=== PATIENT | female | born 1995 | race Hispanic/Latino ===

== ENCOUNTER 2018-02-09 19:15 | Inpatient (IN) | payer OTHER, SELFPAY ==
[2018-02-09] MEDS: 0.9% Saline Lock 10 ML Syringe IV (19:55)
[2018-02-09 20:25] LABS: Hematocrit 35.8 % (37-47); Hemoglobin 11.6 g/dl (12.0-15.0); Mean Corp Hgb Conc 32.4 g/gl (32-36); Mean Corpuscular Hgb 27.8 pg (27.0-32.0); Mean Corpuscular Volume 85.6 fL (81-99); Mean Platelet Vol. 9.2 fl (6.2-12.0); Platelet Count 296 K/mm3 (150-450); RBC Distribution Width CV 13.9 % (11.6-14.6); RBC Distribution Width SD 43.2 fl (35.1-43.9); Red Blood Count 4.18 M/mm3 (4.2-5.4); White Blood Count 7.2 K/mm3 (4.4-11.0)
[2018-02-09 20:26] LABS: Scan Indicated on CBC? Y/N NO
[2018-02-09] MEDS: 0.9% Normal Saline 100 ML IV.SOLN. INTRA-UTER (20:46)
[2018-02-09 20:54] VITALS: BMI 33.5
--- NOTE | 2018-02-09 21:05 | PCM.HP.OB ---
- Problem List (1) Post-dates Status: Acute (2) Insufficient antepartum care Status: Acute (3) History of depression Status: Acute (4) Support system deficit Status: Acute (5) Unwanted Status: Acute (6) Alcohol abuse affecting Status: Acute History Date of Admission: 02/09/18 Final KAYY: 02/02/18 Final KAYY Source: US <20 weeks Gestational age: 41 Weeks and 0 Days History of this : This is a 22 year-old, G [3], P [P0020], at 41 weeks gestational age presents for postdates IOL. Some irregular contractions today but nothing frequent or signs of labor. Denies any vaginal bleeding or leakage of fluid. Family supportive and at bedside. History of alcohol abuse during -no alcohol use since September. History of Depression Allergies No Known Allergies Allergy (Verified 02/09/18 20:53) Home Medications: Home Medications Folic Acid 1 mg PO DAILY 02/09/18 Vits [Prenatabs FA ] 1 tablet PO DAILY 02/09/18 Smoking Status: Never smoker Alcohol: Sober - Heavy alcohol use during , stopped in September after approx 23 weeks gestation Number of Fetus(es): 1 Heart Tracin, moderate variability, accels, no decels, Category 1 TOCO: Irregular contractions, mild Cervix: 1cm/60%/-3 IBOW. Tatum bulb placed without difficulty. Patient tolerated procedure well. TOCO Analysis: Irregular History Past Pregnancies: Past Pregnancies Delivery Date Name GA/Weeks Outcome Route Weight Gender Labor Length Anesthesia Delivery Location Provider FOB Labs: Rubella Immune HIV negative HBsAG negative RPR negative GBS negative GC/CT negative A positive, antibody screen negative Expected Delivery Method: Spontaneous Vaginal Review of Systems Constitutional: Denies: Chills, Fever, Weight Change HEENT: Denies: Head Aches, Sinus Congestion, Sinus Drainage Cardiovascular: Denies: Chest Pain, Palpitations Respiratory: Denies: Cough, Shortness of breath at rest, Sputum production Gastrointestinal: Denies: Abdominal Pain, Nausea, Vomiting Genitourinary: Denies: Dysuria Psychiatric: Denies: Anxiety, Depression, Homicidal Ideations, Suicidal Ideations Physical Exam General: Alert, Oriented x3, No apparent distress HEENT: Atraumatic, Normocephalic Cardiovascular: Regular rate, Regular Rhythm, No murmurs Lungs: Clear to auscultation, No rhonchi, No wheeze Abdomen: Soft, Gravid Extremities:: No edema Neurological: Deep Tendon Reflexes 2+/4 and Symmetrical. Negative for: Clonus PLATFORM SUPERVISOR: Normal external genitalia Estimated gestational size: Appropriate for gestational size Presentation: Cephalic Cervix Dilation (cm): 1 Station: -3 Effacement (%): 60 Assessment/Plan All Active Problems Post-dates (Acute) Insufficient antepartum care (Acute) History of depression (Acute) Support system deficit (Acute) Unwanted (Acute) Alcohol abuse affecting (Acute) This is a 22 year-old, G [3], P [0020], at weeks gestational age. A:Postdates Induction of Labor Category 1 FHT P: 1) Admit to L&D. IV and labs. Routine L&D care. 2) Reviewed cervical ripening and options. Discussed tatum catheter with PO cytotec R/B/A, agrees to plan. Plan Pitocin after tatum cateter falls out and appropriate time after cytotec dosing. 3) notified of admission and patient status. Collaborative physician at this time. Candis Avelar, KAILASH, CNM
--- NOTE | 2018-02-09 21:08 | HP.PCM_ITS ---
- Problem List (1) Post-dates Status: Acute (2) Insufficient antepartum care Status: Acute (3) History of depression Status: Acute (4) Support system deficit Status: Acute (5) Unwanted Status: Acute (6) Alcohol abuse affecting Status: Acute History Date of Admission: 02/09/18 Final KAYY: 02/02/18 Final KAYY Source: US <20 weeks Gestational age: 41 Weeks and 0 Days History of this : This is a 22 year-old, G [3], P [P0020], at 41 weeks gestational age presents for postdates IOL. Some irregular contractions today but nothing frequent or signs of labor. Denies any vaginal bleeding or leakage of fluid. Family supportive and at bedside. History of alcohol abuse during -no alcohol use since September. History of Depression Allergies No Known Allergies Allergy (Verified 02/09/18 20:53) Home Medications: Home Medications Folic Acid 1 mg PO DAILY 02/09/18 Vits [Prenatabs FA ] 1 tablet PO DAILY 02/09/18 Smoking Status: Never smoker Alcohol: Sober - Heavy alcohol use during , stopped in September after ap prox 23 weeks gestation Number of Fetus(es): 1 Heart Tracin, moderate variability, accels, no decels, Category 1 TOCO: Irregular contractions, mild Cervix: 1cm/60%/-3 IBOW. Tatum bulb placed without difficulty. Patient tolerated procedure well. TOCO Analysis: Irregular History Past Pregnancies: Past Pregnancies Delivery Date Name GA/Weeks Outcome Route Weight Gender Labor Length Anesthesia Delivery Location Provider FOB Labs: Rubella Immune HIV negative HBsAG negative RPR negative GBS negative GC/CT negative A positive, antibody screen negative Expected Delivery Method: Spontaneous Vaginal Review of Systems Constitutional: Denies: Chills, Fever, Weight Change HEENT: Denies: Head Aches, Sinus Congestion, Sinus Drainage Cardiovascular: Denies: Chest Pain, Palpitations Respiratory: Denies: Cough, Shortness of breath at rest, Sputum production Gastrointestinal: Denies: Abdominal Pain, Nausea, Vomiting Genitourinary: Denies: Dysuria Psychiatric: Denies: Anxiety, Depression, Homicidal Ideations, Suicidal Ideations Physical Exam General: Alert, Oriented x3, No apparent distress HEENT: Atraumatic, Normocephalic Cardiovascular: Regular rate, Regular Rhythm, No murmurs Lungs: Clear to auscultation, No rhonchi, No wheeze Abdomen: Soft, Gravid Extremities:: No edema Neurological: Deep Tendon Reflexes 2+/4 and Symmetrical. Negative for: Clonus COMMUNICATIONS BILLING ANALYST: Normal external genitalia Estimated gestational size: Appropriate for gestational size Presentation: Cephalic Cervix Dilation (cm): 1 Station: -3 Effacement (%): 60 Assessment/Plan All Active Problems Post-dates (Acute) Insufficient antepartum care (Acute) History of depression (Acute) Support system deficit (Acute) Unwanted (Acute) Alcohol abuse affecting (Acute) This is a 22 year-old, G [3], P [0020], at weeks gestational age. A:Postdates Induction of Labor Category 1 FHT P: 1) Admit to L&D. IV and labs. Routine L&D care. 2) Reviewed cervical ripening and options. Discussed tatum catheter with PO cytotec R/B/A, agrees to plan. Plan Pitocin after tatum cateter falls out and appropriate time after cytotec dosing. 3) notified of admission and patient status. Collaborative physician at this time. Candis Avelar APRN, CNM
[2018-02-09] MEDS: miSOPROStol 25 MCG TABLET PO (21:25)
[2018-02-09 23:45] LABS: AST(SGOT) 14 U/L (15-37); Alanine Aminotransfer ALT/SGPT 11 U/L (13-56); Albumin, Serum 2.5 g/dL (3.2-5.0); Alkaline Phosphatase 268 U/L (45-117); Bilirubin, Direct 0.08 mg/dL (0.00-0.30); Globulin 3.7 g/dL (2.2-4.2); Protein, Total 6.2 g/dL (6.4-8.2)
[2018-02-10] MEDS: 0.9% Saline Lock 10 ML Syringe IV ×3 (03:49→21:34)
[2018-02-10] MEDS: Lactated Ringers 1,000 ML 50 ML IV ×2 (03:52→04:55)
[2018-02-10] MEDS: Oxytocin 30 units/NS 500 ml 30 UNITS/500 ML IV.SOLN IV (03:55)
[2018-02-10] MEDS: fentaNYL-bupivacaine (epidural) 100 ML BAG EPIDURAL ×2 (05:22→10:02)
--- NOTE | 2018-02-10 08:23 | PCM.PN.OB ---
Patient Problems: Active and Suspected Problems Post-dates (Acute) Insufficient antepartum care (Acute) History of depression (Acute) Support system deficit (Acute) Unwanted (Acute) Alcohol abuse affecting (Acute) Subjective: Report received from Viral LEONG. Patient laying in bed currently and is comfortable after epidural placement. Patient currently on 10 milliunits pitocin. Plan for repeat SVE to be done at this time with plans for AROM if minimal or no cervical change noted. Objective: FHT baseline 130, moderate variability, + accels, no decels noted Ctx q 2-6 minutes, moderately strong to palpation SVE = 4-5/60/-2, cervix midposition AROM for moderate amount brown particulate fluid - Physical Exam General: Alert, Oriented x3, Cooperative HEENT: Atraumatic, Normocephalic Neck: Supple, Negative Carotid Bruits Lungs: Normal air movement Cardiovascular: Regular rate, No murmurs Abdomen: Soft, Non Tender, Non-Distended Extremities: No edema, Capillary Refill Less than 3 Seconds Skin: No rashes, No breakdown Musculoskeletal: No Tenderness to Palpation of Joints or Extremities Neurological: Cranial nerves II-XII grossly intact, Deep Tendon Reflexes 2+/4 and Symmetrical Psych/Mental Status: Normal Affect, Appropriate Weight: 227 lb 1.218 oz Body Mass Index (BMI) 33.5 Intake and Output for Last 24 Hours 02/09/18 02/09/18 02/10/18 00:59 23:59 23:59 Intake Total 2662 / 2662 Balance 2662 / 2662 Laboratory Tests Past 24 Hrs 02/09/18 02/09/18 02/09/18 19:55 19:55 23:00 WBC 7.2 RBC 4.18 L Hgb 11.6 L Hct 35.8 L MCV 85.6 MCH 27.8 MCHC 32.4 RDW 13.9 RDW Differential 43.2 Plt Count 296 MPV 9.2 Total Bilirubin 0.40 Direct Bilirubin 0.08 AST 14 L ALT 11 L Alkaline Phosphatase 268 H Total Protein 6.2 L Albumin 2.5 L Globulin 3.7 Blood Type A POSITIVE Antibody Screen NEGATIVE Medical Necessity - Tobacco Use Smoking Status: Never smoker Assessment/Plan All Active Problems Post-dates (Acute) Insufficient antepartum care (Acute) History of depression (Acute) Support system deficit (Acute) Unwanted (Acute) Alcohol abuse affecting (Acute) 22 y/o @ 41 weeks, Postdates IOL, AROM for Labor Augmentation, Category I FHT 1) Continue pitocin titration at this time until adequate ctx 2) Consider placement of internal monitoring and IUPC with next SVE 3) Collaborating physician Dr. Farmer updated on patient status and plan of care Letitia LEONG
--- NOTE | 2018-02-10 12:10 | PCM.PN.OB ---
Patient Problems: Active and Suspected Problems Post-dates (Acute) Insufficient antepartum care (Acute) History of depression (Acute) Support system deficit (Acute) Unwanted (Acute) Alcohol abuse affecting (Acute) Subjective: Provider called to room to evaluate patient. Patient reports increase in pelvic pressure sensations and anesthesia has been called to evaluate. Patient requests a repeat SVE at this time. Objective: FHT baseline 140 baseline, mild to moderate variability, + accels, no decels noted Ctx q 2-3 minutes, palpate strong. Pitocin off at this time. IUPC in place - MVU = 150-180 SVE = 8/80/-1, baby OP by palpation of sutures - Physical Exam General: Alert, Oriented x3, Cooperative, - - grimaces and breathing during ctx Lungs: Normal air movement Cardiovascular: Regular rate Abdomen: Soft, Non Tender, Appropriate for Gestational Age, - - Baby vtx and OP by Sam's Skin: No rashes, No breakdown Neurological: Cranial nerves II-XII grossly intact Psych/Mental Status: Normal Affect, Appropriate, Alert and oriented to time, place, person, mood and affect Weight: 227 lb 1.218 oz Body Mass Index (BMI) 33.5 Intake and Output for Last 24 Hours 02/09/18 02/09/18 02/10/18 00:59 23:59 23:59 Intake Total 2662 / 2662 Balance 2662 / 2662 Laboratory Tests Past 24 Hrs 02/09/18 02/09/18 02/09/18 19:55 19:55 23:00 WBC 7.2 RBC 4.18 L Hgb 11.6 L Hct 35.8 L MCV 85.6 MCH 27.8 MCHC 32.4 RDW 13.9 RDW Differential 43.2 Plt Count 296 MPV 9.2 Total Bilirubin 0.40 Direct Bilirubin 0.08 AST 14 L ALT 11 L Alkaline Phosphatase 268 H Total Protein 6.2 L Albumin 2.5 L Globulin 3.7 Blood Type A POSITIVE Antibody Screen NEGATIVE Medical Necessity - Tobacco Use Smoking Status: Never smoker Assessment/Plan All Active Problems Post-dates (Acute) Insufficient antepartum care (Acute) History of depression (Acute) Support system deficit (Acute) Unwanted (Acute) Alcohol abuse affecting (Acute) 22 y/o @ 41 weeks, Transition Stage of Labor, Category I FHT P: 1) Continue assessing contraction pattern, restart pitocin if ctx space out 2) Anticipate Letitia LEONG
[2018-02-10] MEDS: Ondansetron 4 MG/2 ML Vial IV ×2 (14:28→21:34)
[2018-02-10] MEDS: Oxytocin 30 units/NS 500 ml 30 UNITS/500 ML IV.SOLN 334 UNITS IV (17:10)
[2018-02-10] MEDS: Oxytocin 30 units/NS 500 ml 30 UNITS/500 ML IV.SOLN 167 UNITS IV (17:40)
--- NOTE | 2018-02-10 17:57 | PCM.OB.VAG ---
Vaginal Delivery Maternal Presentation: Medically Indicated Induction Method of Induction: Pitocin, Jefferson Bulb, Amniotomy Amniotic Membrane Rupture Type: Artificial Amniotic Fluid Description: - - Brown particulate fluid Final KAYY: 02/02/18 Gestational age: 41 Weeks and 1 Days [place] doctor who attended delivery (if requested by OB): Prudence Christianson Date of Procedure: 02/10/18 Pre-Operative Diagnosis: Postdates IOL Post-Operative Diagnosis: of viable baby Surgery/ Procedure Performed: Spontaneous Vaginal Delivery Type of Anesthesia: Epidural Description of Procedure: Patient progressed well to complete/+2 station and pushed well with maternal effort. Patient delivered a viable boy baby over 2nd degree lacerated perineum at 1709. Infant head delivered OA and restituted to GERSON and then ROT. Anterior shoulder delivered without difficulty followed by posterior shoulder and body. immediately with spontaneous cry and respirations and was placed on maternal chest. Mouth and nose bulb suctioned. Infant dried and stimulated. Apgars 8 and 9. Umbilical cord clamped and cut as signs of placental separation noted and the umbilical cord was no longer pulsing. Placenta then delivered spontaneously via Jernigan mechanism intact with 3VC. Placental triage WNL. EBL = 400cc. Upon inspection of vaginal vault, 2nd degree laceration noted and was repaired in the usual fashion using 3-0 Rapide suture under epidural analgesia. Sponge and needle count correct. Vaginal sweep negative. Bonding and initiated. [id number] initiated. Social Service consult ordered. Letitia FAROOQM Presentation: Vertex, GERSON Placental Delivery Description: Spontaneous Placenta Disposition: [facility] Cord Vessel Description: 3 Vessels Cord Entanglement: None Estimated Blood Loss: 400 A gender: Male (1 minute): 8 (5 minute): 9 Laceration: Perineal Extension/lac, Vaginal Extension/lac, 2nd degree Medications given after delivery: IV Pitocin, IM Methergin Complications: None
[2018-02-10] MEDS: Ibuprofen 600 MG Tablet PO (18:38)
[2018-02-10 19:35] VITALS: BP 128/78; PULSE 88; RESP 20; TEMP 36.3
[2018-02-10] MEDS: Acetaminophen 325 MG Tablet PO (21:33)
[2018-02-11] VITALS (7 sets, daily range): BP systolic 104–118; BP diastolic 45–63; PULSE 76–94; RESP 14–18; TEMP 36.5–37.2; O2SAT 95–98
[2018-02-11] MEDS: Ibuprofen 600 MG Tablet PO ×3 (03:08→19:43)
[2018-02-11] MEDS: Acetaminophen 325 MG Tablet PO ×2 (05:23→22:29)
[2018-02-11 05:40] LABS: Hematocrit 32.4 % (37-47); Hemoglobin 10.5 g/dl (12.0-15.0); Mean Corp Hgb Conc 32.4 g/gl (32-36); Mean Corpuscular Hgb 27.7 pg (27.0-32.0); Mean Corpuscular Volume 85.5 fL (81-99); Mean Platelet Vol. 8.8 fl (6.2-12.0); Platelet Count 217 K/mm3 (150-450); RBC Distribution Width CV 14.1 % (11.6-14.6); RBC Distribution Width SD 43.9 fl (35.1-43.9); Red Blood Count 3.79 M/mm3 (4.2-5.4); White Blood Count 13.5 K/mm3 (4.4-11.0)
[2018-02-11 05:41] LABS: Scan Indicated on CBC? Y/N NO
--- NOTE | 2018-02-11 15:25 | CASEMGMT ---
Social Work Labor and Delivery Unit Consult noted and received. Chart has been reviewed. Per conversation with nursing staff and head swamper, patient/mother of baby's has been transferred to [facility] as of today. This bid writer also provides social work to the [facility]. Spoke with nursing staff in the [facility], and MOB told the nursery of plan to try and get some sleep for a few hours this afternoon. In light of baby's hospitalization continuing past tomorrow with admission to the [facility] today, will just let MOB rest this afternoon and plan to see MOB tomorrow. Plan: See MOB tomorrow 02-12-18 for assessment, support, and determination of resource needs. -JUMA Boyer, GREENKEEPER
--- NOTE | 2018-02-11 16:22 | PCM.PN.OB ---
Patient Problems: Active and Suspected Problems Post-dates (Acute) Insufficient antepartum care (Acute) History of depression (Acute) Support system deficit (Acute) Unwanted (Acute) Alcohol abuse affecting (Acute) Subjective: Pain well controlled. Average lochia. - Physical Exam General: Alert, Cooperative, No apparent distress Vital Signs Temp Pulse Resp BP Pulse Ox 98 F 76 14 113/63 97 02/11/18 15:56 02/11/18 15:56 02/11/18 15:56 02/11/18 15:56 02/11/18 15:56 Oxygen Delivery Method Room Air Weight: 103 kg Body Mass Index (BMI) 33.5 Intake and Output for Last 24 Hours 02/09/18 02/10/18 02/11/18 23:59 23:59 23:59 Intake Total 4762 / 4762 Output Total 3200 / 3200 Balance 1562 / 1562 Laboratory Tests Past 24 Hrs 02/11/18 05:25 WBC 13.5 H RBC 3.79 L Hgb 10.5 L Hct 32.4 L MCV 85.5 MCH 27.7 MCHC 32.4 RDW 14.1 RDW Differential 43.9 Plt Count 217 MPV 8.8 Medical Necessity - Tobacco Use Smoking Status: Never smoker Assessment/Plan All Active Problems Post-dates (Acute) Insufficient antepartum care (Acute) History of depression (Acute) Support system deficit (Acute) Unwanted (Acute) Alcohol abuse affecting (Acute) day #1 status post spontaneous vaginal delivery Routine care. Likely discharge tomorrow.
[2018-02-11] MEDS: Dibucaine 30 GM Tube 1 APPLIC TOPICAL (19:47)
[2018-02-11] MEDS: Senna/Docusate Sodium 1 Tablet PO (19:47)
[2018-02-12] MEDS: Ibuprofen 600 MG Tablet PO ×2 (01:52→15:27)
[2018-02-12 01:53] VITALS: BP 92/56; PULSE 67; RESP 15; TEMP 36.3; O2SAT 97
[2018-02-12] MEDS: Acetaminophen 325 MG Tablet PO ×2 (07:26→16:31)
[2018-02-12 07:27] VITALS: BP 137/62; PULSE 84; RESP 16; TEMP 36.7; O2SAT 97
--- NOTE | 2018-02-12 07:46 | DCINST_ITS ---
Discharge Diet: No Restrictions Discharge Activity: Return to Normal Activity, May not drive while taking narcotic pain medications., May Shower May resume sexual activity in: 4-6 weeks Additional Activity Instructions:: Nothing in the vagina for 4-6 weeks. You may return to work/school in 6 weeks. Call your doctor if your incision/area has: Continuous Slow Oozing, Sudden Increased Bleeding, Increased Pain/ Swelling, Increased Redness, Foul Smelling Discharge Call your doctor if you observe: Fever of 101 or Higher, Inability to urinate, Inability to have a bowel movement, Using more than one pad per hour Additional Instructions: If you experience any of the following, contact your healthcare provider. * Bleeding that soaks a pad every hour for 2 hours * Fever 100.4 or higher * Unrelieved incision or abdominal pain * Swelling, redness, discharge or bleeding from your incision or episiotomy site * Your incision begins to separate * Problems urinating (including inability to urinate or burning while urinating). * Visual changes * Severe headache * Flu-like symptoms * Pain or redness in one of both of your breasts * Pain, warmth, tenderness or swelling in your legs, especially the calf area * Frequent nausea and vomiting * Symptoms of depression or anxiety If you experience any of the following, call 911 or go to the nearest Emergency Room. * Chest pain * Problems breathing * Seizure activity * Partial or complete paralysis of a body part, slurred speech, weakness or drooping of the face, or a sudden inability to walk or hold your balance Allergies/Adverse Reactions: Allergies bee venom protein (honey bee) Allergy (Verified 02/10/18 07:03) Hives fluoxetine [From Prozac] Allergy (Verified 02/10/18 07:03) Hives Medications to take at Discharge Folic Acid 1 mg PO DAILY 02/09/18 Vits [Prenatabs FA ] 1 tablet PO DAILY 02/09/18 Senna/Docusate Sodium [Senokot-S] 1 - 2 tablet PO DAILY PRN PRN tablet 02/12/18 Please Follow Up With: Letitia Knott CNM When: Call to make an appointment with your provider in 2 weeks and 6 weeks . Test Results: Test results from this visit will be discussed in further detail at your follow- up appointment, if applicable. Proposed Discharge Date: 02/12/18
--- NOTE | 2018-02-12 07:46 | PCM.PN.OB ---
Patient Problems: Active and Suspected Problems Post-dates (Acute) Insufficient antepartum care (Acute) History of depression (Acute) Support system deficit (Acute) Unwanted (Acute) Alcohol abuse affecting (Acute) Subjective: Patient sitting up in bed at this time. Infant is currently in [facility] at this time for monitoring due to tachypnea. Patient is pumping breastmilk and reports she is getting only a little bit. Patient denies any INFNATE, dizziness or scotoma. Reports + flatus and feels like she will have a bowel movement soon. Patient took a stool softener last night and plans to take another one today. Patient denies pain, heavy bleeding or any difficulties with urination or ambulation. Objective: VSS, Afebrile Nipples without cracks or blisters, no erythema noted Abdomen NT x 4 quadrants, FF midline 2FB below umbilicus negative calf tenderness to palpation Trace pedal and LE edema, non-pitting Scant rubra lochia, perineum well-approximated - Physical Exam General: Alert, Oriented x3, Cooperative HEENT: Atraumatic, Normocephalic Neck: Supple Lungs: Normal air movement Cardiovascular: Regular rate, Regular Rhythm Abdomen: Soft, Non Tender, Passing Flatus Extremities: No edema, Capillary Refill Less than 3 Seconds, No Calf Tenderness, Edema - Trace pedal and LE non-pitting edema noted Skin: No rashes, No breakdown Musculoskeletal: No Tenderness to Palpation of Joints or Extremities Neurological: Cranial nerves II-XII grossly intact, Deep Tendon Reflexes 2+/4 and Symmetrical Psych/Mental Status: Normal Affect, Appropriate, Alert and oriented to time, place, person, mood and affect Vital Signs Temp Pulse Resp BP Pulse Ox 98.0 F 84 16 137/62 H 97 02/12/18 07:27 02/12/18 07:27 02/12/18 07:27 02/12/18 07:27 02/12/18 07:27 Oxygen Delivery Method Room Air Weight: 227 lb 1.218 oz Body Mass Index (BMI) 33.5 Intake and Output for Last 24 Hours 02/10/18 02/11/18 02/12/18 23:59 23:59 23:59 Intake Total 4762 / 4762 Output Total 3200 / 3200 Balance 1562 / 1562 Medical Necessity - Tobacco Use Smoking Status: Never smoker Assessment/Plan All Active Problems Post-dates (Acute) Insufficient antepartum care (Acute) History of depression (Acute) Support system deficit (Acute) Unwanted (Acute) Alcohol abuse affecting (Acute) 22 y/o G3 now P1, PPD #2, Normal Course P: 1) surgical services tech consult completed for hx of PTSD, Grief/Bereavement concerns and EtOH use during 2) Anticipatory Health Teaching Done 3) RTC at 2 weeks and 6 weeks PP to [facility] Letitia LEONG
--- NOTE | 2018-02-12 07:52 | PN.OBGYN_ITS ---
Patient Problems: Active and Suspected Problems Post-dates (Acute) Insufficient antepartum care (Acute) History of depression (Acute) Support system deficit (Acute) Unwanted (Acute) Alcohol abuse affecting (Acute) Subjective: Patient sitting up in bed at this time. Infant is currently in [facility] at this time for monitoring due to tachypnea. Patient is pumping breastmilk and reports she is getting only a little bit. Patient denies any INFANTE, dizziness or scotoma. Reports + flatus and feels like she will have a bowel movement soon. Patient took a stool softener last night and plans to take another one today. Patient denies pain, heavy bleeding or any difficulties with urination or ambulation. Objective: VSS, Afebrile Nipples without cracks or blisters, no erythema noted Abdomen NT x 4 quadrants, FF midline 2FB below umbilicus negative calf tenderness to palpation Trace pedal and LE edema, non-pitting Scant rubra lochia, perineum well-approximated - Physical Exam General: Alert, Oriented x3, Cooperative HEENT: Atraumatic, Normocephalic Neck: Supple Lungs: Normal air movement Cardiovascular: Regular rate, Regular Rhythm Abdomen: Soft, Non Tender, Passing Flatus Extremities: No edema, Capillary Refill Less than 3 Seconds, No Calf Tenderness, Edema - Trace pedal and LE non-pitting edema noted Skin: No rashes, No breakdown Musculoskeletal: No Tenderness to Palpation of Joints or Extremities Neurological: Cranial nerves II-XII grossly intact, Deep Tendon Reflexes 2+/4 and Symmetrical Psych/Mental Status: Normal Affect, Appropriate, Alert and oriented to time, place, person, mood and affect Vital Signs Temp Pulse Resp BP Pulse Ox 98.0 F 84 16 137/62 H 97 02/12/18 07:27 02/12/18 07:27 02/12/18 07:27 02/12/18 07:27 02/12/18 07:27 Oxygen Delivery Method Room Air Weight: 227 lb 1.218 oz Body Mass Index (BMI) 33.5 Intake and Output for Last 24 Hours 02/10/18 02/11/18 02/12/18 23:59 23:59 23:59 Intake Total 4762 / 4762 Output Total 3200 / 3200 Balance 1562 / 1562 Medical Necessity - Tobacco Use Smoking Status: Never smoker Assessment/Plan All Active Problems Post-dates (Acute) Insufficient antepartum care (Acute) History of depression (Acute) Support system deficit (Acute) Unwanted (Acute) Alcohol abuse affecting (Acute) 22 y/o G3 now P1, PPD #2, Normal Course P: 1) public services librarian consult completed for hx of PTSD, Grief/Bereavement concerns and EtOH use during 2) Anticipatory Health Teaching Done 3) RTC at 2 weeks and 6 weeks PP to [facility] Letitia LEONG
--- NOTE | 2018-02-12 07:57 | PCM.WORK.EX ---
Work/School Excuse Work/School Excuse for:: Patient Please excuse this person from:: Work - [employer] Command, Other From: 02/10/18 Restrictions: Other - Patient should be granted leave - delivered baby on 02/10/18 at [facility]
--- NOTE | 2018-02-12 08:01 | WORK.SCH_ITS ---
Work/School Excuse Work/School Excuse for:: Patient Please excuse this person from:: Work - [facility] Command, Other From: 02/10/18 Restrictions: Other - Patient should be granted leave - delivered baby on 02/10/18 at [facility]
[2018-02-12] MEDS: Senna/Docusate Sodium 1 Tablet PO (10:01)
[2018-02-12 14:10] VITALS: BP 112/74; PULSE 84; RESP 16; TEMP 36.7; O2SAT 99
--- NOTE | 2018-02-12 14:31 | CASEMGMT ---
Social Work Labor and Delivery Unit Planning on meeting with patient/mother of baby (MOB) today for assessment and consult. Presented to the special care nursery to see MOB, but a sister had just arrived to visit (had not seen the baby yet per nursing), and then MOB's mother arrived into the SCN. It is also feeding time at 1430. As MOB seems to have a lot going on at this moment, and in light of needing to have some privacy with MOB for part of the assessment at least will try again tomorrow for assessment. Baby will remain in the SCN yet, no discharge time known, so MOB and baby will still be in the hospital tomorrow. This screenplay writer is aware that MOB is discharging as a patient herself, but planning to stay in a courtesy room on the unit so as to be close to the baby. Plan: Continue to try and meet with MOB for assessment and consult on 02-13-18. -JUMA Boyer ,PYTHON DEVELOPER
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
== END 2018-02-12 16:35 | disposition home or self-care (01) | DRG 807 ==
PROVIDERS: Advanced Practice Midwife; Obstetrics & Gynecology; Admitting Provider Obstetrics & Gynecology; Referring Provider Obstetrics & Gynecology; Visit Provider Obstetrics & Gynecology
DX: O48.0 Post-term pregnancy (principal); Z37.0 Single live birth; O70.1 Second degree perineal laceration during delivery; O99.343 Other mental disorders complicating pregnancy, third trimester; F32.9 Major depressive disorder, single episode, unspecified; F43.10 Post-traumatic stress disorder, unspecified; O99.312 Alcohol use complicating pregnancy, second trimester; Z3A.41 41 weeks gestation of pregnancy
CPT/HCPCS: 59025; 59050; 80076; 85027; 86850; 86900; 99218; J7120; A4216; G0378; J2405; J3490

== ENCOUNTER 2018-03-26 09:00 | Outpatient (RCR) | payer OTHER, SELFPAY ==
--- NOTE | 2018-03-26 09:00 | BH.SGPN.GN ---
Behaviors/Verbalizations/Mental Status: [] Pt eye contact fair, casually dressed, motor activity appropriate, speech normal rate and tone, mood anxious, constricted affect, thoughts linear and intact, no evidence of delusions or hallucinations. Client appeared to have a disconnect of emotions as evidenced by client shared about her recent trauma and showing no emotion. Client Response/Progress/Benefit: [] Patient listened attentively to others and shared thoughts and feelings. Client shared she is seeking help through [facility] because her son's father completed suicide while client was . 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 Client reported she moved back with her mom while on maternity leave to get additional support and be able to get help. Seemed to benefit from sharing her thoughts and feelings with the group. Client to continue PHP level of care to decrease depression, increase healthy coping, and prevent decompensation. Narrative Note: []
--- NOTE | 2018-03-26 10:02 | BH.SGPN.GN ---
Behaviors/Verbalizations/Mental Status: []Client alert and oriented, neatly dressed and groomed. Eye contact good. Motor activity appropriate. Speech within normal limits. Affect flat, mood dysthymic. Thoughts linear, logical, no signs of hallucinations or delusions. Client Response/Progress/Benefit: []Client responded well to session, quiet at first, then contributing to discussion. Client reported the topic of pitfalls relate to her as client ?blindly leads myself through life without knowing where/what my pitfalls are.? Client shared for her barriers to making positive changes are wanting to do things herself and having a hard time opening up to others. Client engaged in activity and reported it is important to allow others to help, communicate, and go slow to prevent falling into pitfalls. Client seemed to benefit from increased awareness of how personal pitfalls can impact treatment progress.
--- NOTE | 2018-03-26 10:12 | BH.COMM ---
Communication Note - Communication with Client Communication Note: Therapist met with client to complete intake paperwork. Therapist introduced self as client's individual therapist. Client shared she is unable to stay for individual PHP session today due to limited childcare.
--- NOTE | 2018-03-26 11:10 | BH.SGPN.GN ---
Behaviors/Verbalizations/Mental Status: []Client alert and oriented, neatly dressed and groomed. Eye contact good. Motor activity appropriate. Speech within normal limits. Affect brighter-smiling at times, mood dysthymic. Thoughts linear, logical, no signs of hallucinations or delusions. Client Response/Progress/Benefit: []Client discussion in her small group and listening attentively to others. Client connected the importance of self-awareness, utilizing supports, and managing emotions to help overcome personal pitfalls. Client shared her personal pitfalls include: not being able to self-reflect, minimizing, wanting to do things on her own, and valuing other?s opinions over her beliefs. Client reported she will focus on increasing self-reflection by journaling. Client seemed to benefit from increased awareness of personal pitfalls and identifying strategies that can help client overcome current or future pitfalls. Client to continue PHP level of care to prevent decompensation, increase mood stability, and promote processing of emotions.
--- NOTE | 2018-03-27 10:00 | BH.SGPN.GN ---
Behaviors/Verbalizations/Mental Status: [] Pt eye contact good, casually dressed, motor activity appropriate, speech normal rate and tone, mood euthymic, congruent affect, thoughts linear and intact, no evidence of delusions or hallucinations. Client Response/Progress/Benefit: []Pt active participant as shown by pt contributing thoughts and ideas to discussion, attentive to others. Pt identified a benefit to goal setting is that goals can provide accountability because stating a goal can provided motivation to get it done. Pt identified a barrier to following through with goals is having a goal that is not specific or attainable. Pt shared goals that are not specific will result in not accomplishing goal because the goal doesn't give enough direction on what to focus on. Pt reported when it comes to goal setting she struggles most with following through when life stressors occur. Pt seemed to benefit from rehearsing setting short term goals and learning about SMART goal setting. Narrative Note: []
--- NOTE | 2018-03-27 11:10 | BH.SGPN.GN ---
Behaviors/Verbalizations/Mental Status: [] Pt eye contact good, casually dressed, motor activity appropriate, speech normal rate and tone, mood euthymic, congruent affect, thoughts linear and intact, no evidence of delusions or hallucinations. Client Response/Progress/Benefit: [] Client contribute positively discussion and listened attentively to others. Client identified her goal is to: Get promoted to the next rank in the [employer] by studying for at least 1 hour every day for the next 4 months. Client reported this will benefit her because of increased responsibility, increased pay and helping her start a new chapter of her life. Client identified an obstacle could be not having enough time which she identified one way to overcome this is to find another person that is studying for the same test and study together. Client shared another obstacle could be getting bored or tired of studying which she identified she can try to find ways to make her studying fine or engaging. Client shared other ways to help her achieve her goal is to have her support people remind her of the benefit of accomplishing her goal. Client progress could be hindered if patient continues to struggle with focusing on ways she can improve her mental health. Client to continue PHP level care to increase mood stability, increased use to healthy coping skills, and prevent decompensation. Narrative Note: []
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
--- NOTE | 2018-03-28 09:02 | BH.SGPN.GN ---
Behaviors/Verbalizations/Mental Status: [] Pt eye contact good, casually dressed, motor activity appropriate, speech normal rate and tone, mood euthymic, congruent affect, thoughts linear and intact, no evidence of delusions or hallucinations. Reviewed client?s symptom tracker, no signs of suicidal ideation, plan, or intent as of today. Client Response/Progress/Benefit: []Pt listened attentively to others and shared thoughts and feelings. Pt reported a positive is being home for the first time in 4 years to spend the holidays with her family since being in the [employer]. Pt shared another positive was taking time to get her side mirror on her car fixed since it has been broke for a little while. Pt reported her current stressor is not getting enough sleep last night because her 6 week old son didn't have a good night sleep. Pt provided feedback to peers. Pt to continuing to focus on superficial topics, seems to avoid talking about struggles. Pt to continue PHP level of care to stabilize moods, increase use of healthy coping, and prevent decompensation. Narrative Note: []
--- NOTE | 2018-03-28 10:39 | BH.NOTE ---
BH: Inpatient Note - Notes Behavioral Health Inpatient Note: Per WAlexander from Dr. Combs, the follow were called into [facility] pharmacy in [place], [place]: bupropion XL 150mg, 1 tab PO QAM, #30, no refills prazosin 2mg, 1 tab PO QHS, #30, no refills She Andrew BSN, RN
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
--- NOTE | 2018-03-28 15:27 | BH.MDN_ITS ---
Multi-Disciplinary Note - Note 45-min Individual Time Started:: 12:15 Date: 03/28/18 Purpose of session/treatment goals addressed:: The purpose of this session was to address current client symptoms, guilt, emotional blunting, and review homework. Other topics included: cognitive distortions, self-compassion, and secondary emotions. Eye Contact:: Fair Motor Activity:: Appropriate Appearance:: Neat Speech:: Appropriate Mood:: Dysthymic Affect:: Constricted - tearful at times. Thoughts:: Linear, Logical, No evidence of hallucinations/delusions noted Staff Interventions:: Therapist used active listening and open-ended questions to explore current symptoms, guilt, and review homework. Therapist gently challenged client on her reported emotion and discussed emotional blunting. Therapist used a non-judgmental perspective to normalize client's emotions and provide emotional validation. Therapist assisted client in exploring current emotions, core beliefs, and negative thoughts. Therapist provided psychoeducation on cognitive dissonance and the stages of grief. Therapist discussed how cognitive distortions, vulnerabilities, and unrealistic expectations can impact how one processes emotions. Therapist used an activity to help client verbalize emotions she has not let herself feel. Therapist provided client with homework. Client Response:: Client responded well to session, open to meeting with therapist. Client completed homework and shared her triggers and vulnerabilities with therapist. One of client's triggers is lack of sleep, which client did not get sleep last night. Client stated, it's not bad until day 3 and then I'm emotional. Client reported feeling guilty for asking for help from her family, so she could nap, but with gentle challenging client saw the benefits of asking for help. Client stated she is feeling calm but recognized she may be minimizing her emotions. Client acknowledges she does not open up about her struggles and how she feels because client feels guilt and shame. Client repo rted she often feels guilty about her views of motherhood. Client identified current negative thoughts reinforcing feelings of guilt and shame. Client stated she does not allow herself to feel emotions because it makes the situation more real. Client and therapist discussed the pros and cons of this. Client open to writing a self-compassion list to help client be less judgmental towards herself. Client receptive to paying attention to cognitive distortions. Risks/Concerns:: Client denies suicidal ideation, plan, and intent as of 12/21/18. Progress Toward Goals/Plan:: Client's progress mild as she continues to endorse a depressed mood, guilt, emotional blunting, and distorted thoughts. Client has shown progress with identifying her triggers, warning signs, and conflicting emotions. Client acknowledges she struggles with opening up about her emotions due to perfectionist expectations for herself and guilt. Client reports being receptive to working on this during sessions. Client agreeable to practicing awareness of cognitive distortions and writing a self-compassion list to combat self-judgement. Client to continue PHP to prevent decompensation, reduce cognitive distortions, and improve mood stability. Time Stopped:: 13:00
--- NOTE | 2018-03-31 11:32 | BH.COMM ---
Communication Note - Communication with Client Communication Note: called in to cancel PHP today. 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 Will follow up with Alvaro to get accurate information regarding how the government shut-down will effect pt's benefits.
--- NOTE | 2018-04-04 09:00 | BH.SGPN.GN ---
Behaviors/Verbalizations/Mental Status: [] Eye contact is good. Motor activity is appropriate. Appearance is casual. Speech is Appropriate. Mood is depressed and irritable. Affect is flat. Thoughts are linear and logical. No evidence of psychosis. Reviewed daily check in sheet and no reports of suicidal ideations or intent. Client Response/Progress/Benefit: [] Sporadic participation in group discussion however appeared irritable and restless throughout the group. Check-in was short and she stated nothing special. Stress related to son being sick however reports that her holidays went well. Other stressor reported in government shut-down as she is not getting paid and there has been some confusion regarding medical care. No progress noted since last session. Will continue in PHP to maintain safety, stabilize mood, and prevent decompensation. Narrative Note: []
--- NOTE | 2018-04-04 10:05 | BH.SGPN.GN ---
Behaviors/Verbalizations/Mental Status: []Client alert and oriented, neatly dressed and groomed. Eye contact fair. Motor activity slowed. Speech soft, did not contribute much to discussion. Affect flat- appeared fatigued, mood dysthymic, tired. Thoughts linear, logical, no signs of hallucinations or delusions. Client Response/Progress/Benefit: []Client responded somewhat well to session, appeared fatigued, but making good eye contact. Client declined to participate in the discussion of how positive and negative forces in a person?s life can impact one?s mental health and functioning. Client engaged in the activity and was more active as shown by client asking clarifying questions and having improved affect by smiling. Client appeared to benefit from connecting with peers in the activity and gaining insight to how the positive and negative forces in a person?s life impact mental health. Client limited as client has missed several days of PHP due to issues with insurance. Client to continue PHP as she continues to report depressed mood and can increase social support.
--- NOTE | 2018-04-07 08:28 | BH.MDN_ITS ---
Multi-Disciplinary Note - Note 45-min Individual Time Started:: 11:20 Date: 04/04/18 Purpose of session/treatment goals addressed:: The purpose of this session was to address current stressors, symptoms, and barriers. Other topics included: boundaries, emotional release coping skills, and grief. Eye Contact:: Good Motor Activity:: Appropriate Appearance:: Neat Speech:: Appropriate Mood:: Depressed, Other - frustrated Affect:: Constricted - was tearful during one point of session, but often holding back tears. Thoughts:: Linear, Logical, No evidence of hallucinations/delusions noted Staff Interventions:: Therapist used active listening and open-ended questions to explore client's current stressors, symptoms, and issues with her family. Therapist provided emotional support and validation while allowing client to vent in order to process recent trigger. Therapist discussed boundary setting, communication of needs, and helped client identify her values. Therapist assisted client in challenging cognitive distortions. Therapist and client discu ssed the importance of emotional release and therapist gave client homework to practice this coping skill and to identify her boundary expectations. Therapist told client about PALS and discussed grief counseling. Client Response:: Client responded well to session, open to meeting with therapist. Client reported she did not do her homework as her baby has been sick which has impacted client's sleep. Client vented about a recent issue with her family which client felt like her mother disrespected her boundaries and rights as a mother. Client reported feeling as though her family is pushing me to rip off the band aid and open up about her emotions and the loss of her boyfriend. Client shared I don't even know how I feel and that is important for client to process it first before talking about it with others. Client stated her family continues to ask her questions which further triggers client's grief and trauma. Client stated her mother and sisters are also not letting me figure out motherhood on my own as client reports they always have an idea. Client stated she has verbalized her boundaries and needs in the past, but they were not respected. Client shared her father is understanding, but client does not want to cause tension between her parents. Client wrote out her needs for setting boundaries which included: learning how to be a mom my way and being allowed to process her emotions and grief in my own time. Client was tearful and shared she recognized that she has been holding on to angry, both from this situation, and for the loss of her boyfriend. Client stated, I'm angry he left me alone with the baby. Client and therapist discussed PALS and grief counseling, but client shared she is not ready to attend those services yet. Cli ent receptive to practicing self-care and emotional release coping skills this weekend to begin processing and identifying her emotions about the situation. Client receptive to homework on boundary setting and reports plan to talk with her parents soon. Risks/Concerns:: Client denies suicidal ideation, plan, and intent as of 04/04/18. Progress Toward Goals/Plan:: Client showing progress towards treatment goals as she has improved with opening up about her emotions during individual sessions rather than putting on the mask. However, client continues to struggle with allowing herself to feel emotions associated with grief and reports difficulty describing how she feels which makes communicating with supports challenging. Client showing progress with challenging distortions that reinforce depressive symptoms and guilt. Client willing to write out her boundary expectations and plans to address this issue with her parents. Client receptive to practicing self-care and emotional release this weekend. Client to continue PHP to reduce depressive symptoms and increase healthy coping skills to process and regulate emotions. Time Stopped:: 12:10
--- NOTE | 2018-04-07 09:16 | BH.COMM ---
Communication Note - Communication with Client Communication Note: Therapist called client as she no called/no showed for PHP today. Client reported forgetting Behavioral Health was open today due to the holiday tomorrow and she forgot to get a sitter for her son. Client apologized for the misunderstanding and reports plan to attend PHP on 04/09/18.
--- NOTE | 2018-04-09 13:04 | BH.COMM ---
Communication Note - Communication with Client Communication Note: Client called into behavioral health to follow up as she no called/no showed for her scheduled PHP group and individual sessions today. Client stated she has been very sick and is currently at [facility] to see a doctor. Client reports plan to attend PHP tomorrow should she feel better. Client encouraged to come at least one day this week as she is PHP.
--- NOTE | 2018-04-10 14:42 | BH.COMM ---
Communication Note - Communication with Client Communication Note: Client cancelled today due to having strep throat. Client has not been in all week. Therapist will continue to reach out to client. Therapist to discuss client's case with treatment team and see if client would benefit more from IOP due to issues with attendance.
--- NOTE | 2018-04-14 09:13 | BH.COMM ---
Communication Note - Communication with Client Communication Note: Therapist called client to follow up as client had been sick last week and not yet scheduled her sessions for the week of 04/14/18-04/18/18. Client did not answer, and therapist left a message. Client's attendance has been poor over the last two weeks due to illness and insurance issues. Client's progress and ability to learn and implement healthy coping skills may be hindered by lack of attendance. Therapist to continue to follow up with client and discuss concerns with IOP treatment team.
--- NOTE | 2018-04-15 13:55 | BH.COMM ---
Communication Note - Communication with Client Communication Note: Therapist spoke with client over the phone to follow up on client's health and discuss treatment moving forward. Client shared she would like to discharge from [facility] at this time due barriers of childcare. Client reported I just can't commit to 2-3 days a week and find someone to watch my son.? Client stated weekly counseling would better fit her schedule. Client was open to meeting with this therapist later this week to establish outpatient counseling for continuity of care.
--- NOTE | 2018-04-15 14:03 | BH.COMM_ITS ---
Communication Note - Communication with Client Communication Note: Therapist spoke with client over the phone to follow up on client's health and discuss treatment moving forward. Client shared she would like to discharge from [facility] at this time due barriers of childcare. Client reported I just can't commit to 2-3 days a week and find someone to watch my son.? Client stated weekly counseling would better fit her schedule. Client was open to meeting with this therapist later this week to establish outpatient counseling for continuity of care.
--- NOTE | 2018-04-15 14:03 | BH.DS ---
Discharge Summary - Demographics Date of Admission:: 03/26/18 Discharge Date: 04/15/18 Presenting Problems at Admission:: Client is a 22-year-old female with a history of depression, anxiety, and PTSD. Prior to [facility] admission, client had a recent psychiatric admission for 10 weeks due to overwhelming depression and inability to function at her baseline. Client had significant stressors including recently giving after an unexpected and client's partner and father of her child completing suicide. Client reported increased use of alcohol as well as issues with attaching and bonding with her son during . At admission, client endorsed lack of motivation, grief, crying spells, hopelessness, isolative behaviors, negative core beliefs, and poor sleep. Client also endorsed symptoms of PTSD such as flashbacks and nightmares. Client reports excessive guilt and self-blame related her the loss of her partner and feelings towards motherhood. Discharge Diagnoses:: Major Depressive Disorder, recurrent, moderate F33.1. PTSD Reason for Discharge:: Client voluntarily discharged from [facility] due to inability to commit to the [facility] program structure because of barriers with childcare. Due to unplanned discharge, client did not complete her treatment goals or the program survey. Discharge was done over the phone. - Treatment Progress During Treatment & Response: Client appeared to respond well to treatment on days client attended group. Client engaged in discussion, activities, and would provide feedback to peers. Client completed some of the homework provided by therapist, but several times reported lack of completion due to lack of sleep or needing to take care of her baby. Client's attendance, due to issues with childcare and strep throat, likely impacted client's limited progress as client only attended four [facility] sessions from 03/26/18-04/07/18. Client did not show for any [facility] days in April. Due to client's early discharge, therapist and client unable to accomplish treatment goals. Issues Still to be Addressed:: Due to client's unplanned discharge from [facility], client and therapist were unable to make progress on treatment goals. Client was provided with resources for outpatient mental health services and could benefit from ongoing individual counseling to help client manage depressive symptoms, grief, AoD use, and PTSD. Client reported numerous stressors including being an unexpected first-time mother, lack of social support, self-report of feeling overwhelmed by family, and loss that impact her mental health and functioning. Client self-reported difficulty with allowing herself to feel and verbalize emotions associated with grief, depression, and trauma which makes communicating with supports and working through stressors challenging. Client reported her family can be supportive, but shared they lack understanding of trauma. Client and her family may benefit from psychoeducation on trauma and mental health. Client also shared minimization of symptoms and difficulty with asking for and accepting help. Lastly, client endorsed numerous negative core beliefs and unrealistic expectations of self and could benefit from ongoing work to reframe and replace these with more positive, realistic beliefs. Discharge Recommendations/Instructions:: Client was scheduled to come and meet with this therapist to discuss aftercare options, but she did not show for appointment. Therapist left client a message providing options and numbers for outpatient providers in the [facility]. Therapist gave client information for [facility], [facility], and [facility] community partners. Therapist also provided an option for grief counseling at [facility]. Client encouraged to follow up with her medical appointments. Client recommended to contact superiors at the [employer] to establish care for [place]. Discharge Handout: Complete Discharge Handout with client on aftercare options and continuity of care.
--- NOTE | 2018-04-15 14:19 | BH.DS_ITS ---
Discharge Summary - Demographics Date of Admission:: 03/26/18 Discharge Date: 04/15/18 Presenting Problems at Admission:: Client is a 22-year-old female with a history of depression, anxiety, and PTSD. Prior to [facility] admission, client had a recent psychiatric admission for 10 weeks due to overwhelming depression and inability to function at her baseline. Client had significant stressors including recently giving after an unexpected and client's partner and father of her child completing suicide. Client reported increased use of alcohol as well as issues with attaching and bonding with her son during . At admission, client endorsed lack of motivation, grief, crying spells, hopelessness, isolative behaviors, negative core beliefs, and poor sleep. Client also endorsed symptoms of PTSD such as flashbacks and nightmares. Client reports excessive guilt and self-blame related her the loss of her partner and feelings towards motherhood. Discharge Diagnoses:: Major Depressive Disorder, recurrent, moderate F33.1. PTSD Reason for Discharge:: Client voluntarily discharged from [facility] due to inability to commit to the [facility] program structure because of barriers with childcare. Due to unplanned discharge, client did not complete her treatment goals or the program survey. Discharge was done over the phone. - Treatment Progress During Treatment & Response: Client appeared to respond well to treatment on days client attended group. Client engaged in discussion, activities, and would provide feedback to peers. Client completed some of the homework provided by therapist, but several times reported lack of completion due to lack of sleep or needing to take care of her baby. Client's attendance, due to issues with childcare and strep throat, likely impacted client's limited progress as client only attended four [facility] sessions from 03/26/18-04/07/18. Client did not show for any [facility] days in April. Due to client's early discharge, therapist and client unable to accomplish treatment goals. Issues Still to be Addressed:: Due to client's unplanned discharge from [facility], client and therapist were unable to make progress on treatment goals. Client was provided with resources for outpatient mental health services and could benefit from ongoing individual counseling to help client manage depressive symptoms, grief, AoD use, and PTSD. Client reported numerous stressors including being an unexpected first-time mother, lack of social support, self-report of feeling overwhelmed by family, and loss that impact her mental health and functioning. Client self-reported difficulty with allowing herself to feel and verbalize emotions associated with grief, depression, and trauma which makes communicating with supports and working through stressors challenging. Client reported her family can be supportive, but shared they lack understanding of trauma. Client and her family may benefit from psychoeducation on trauma and mental health. Client also shared minimization of symptoms and difficulty with asking for and accepting help. Lastly, client endorsed numerous negative core beliefs and unrealistic expectations of self and could benefit from ongoing work to reframe and replace these with more positive, realistic beliefs. Discharge Recommendations/Instructions:: Client was scheduled to come and meet with this therapist to discuss aftercare options, but she did not show for appointment. Therapist left client a message providing options and numbers for outpatient providers in the [facility]. Therapist gave client information for [facility], [facility], and [facility] community partners. Therapist also provided an option for grief counseling at [facility]. Client encouraged to follow up with her medical appointments. Client recommended to contact superiors at the [employer] to establish care for when client [place] to [place] in May. Discharge Handout: Complete Discharge Handout with client on aftercare options and continuity of care.
--- NOTE | 2018-04-17 14:37 | BH.COMM_ITS ---
Communication Note - Communication with Client Communication Note: Client did not show for her discharge planning session with therapist today as scheduled. Therapist called and left client a message providing numbers and names of different outpatient providers in the [place] area that take client?s insurance and would meet client's mental health needs. Therapist encouraged client to call into Behavioral Health should she have questions on the outpatient providers or need other assistance.
[2018-04-18 09:58] VITALS: BP 102/72; PULSE 82; RESP 14
== END 2018-04-07 23:59 ==
LOC: BHPHP 09:00
PROVIDERS: Referring Provider Psychiatry & Neurology Psychiatry; Visit Provider Psychiatry & Neurology Psychiatry
DX: F33.1 Major depressive disorder, recurrent, moderate (principal)
CPT/HCPCS: H0035; 90834; 90837; 90853; G0410

== ENCOUNTER 2019-09-17 19:12 | Emergency (ER) | payer SELFPAY ==
[2019-09-17 19:14] VITALS: BP 141/92; PULSE 87; RESP 16; TEMP 36.8; O2SAT 97; BMI 27.9
[2019-09-17 19:42] LABS: Mucous, Urine 0 SEEN /hpf (<or=2+)
[2019-09-17 19:43] LABS: Color, Urine Yellow (Yellow); Glucose, Dipstick Normal (Normal); Ketone-Dipstick Negative (Negative); Leukocyte Esterase-Dipstick 500 /ul (Negative); Nitrite-Dipstick Positive (Negative); Occult Blood-Urine 25 /ul (Negative); Protein-Dipstick 15 mg/dl (Negative); Specific Gravity, Urine 1.015 (1.002-1.030); Urine Bilirubin Dipstick Negative (Negative); Urine Clarity Cloudy (Clear); Urine Urobilinogen Normal (Normal)
[2019-09-17 19:52] LABS: Bacteria 3+ /hpf (None Seen); Red Blood Cells-Urine 0-5 SEEN /hpf (0-5); Squamous Epithelial Cells - UA 0-5 SEEN /hpf (5-10); White Blood Cells 25-50 SEEN /hpf (0-5)
--- NOTE | 2019-09-17 20:12 | ED.VIS.FEGU ---
History of Present Illness Chief Complaint: Complaint Informant: Patient Pain: Pelvic Pain Onset: Weeks - 1 Context: Gradual Onset Timing: Intermittent Quality: Cramping Location: Suprapubic Current Severity: Mild Maximum Severity: Moderate Issue: Negative for: Vaginal bleeding, Passing clots, Passing tissue - Vaginal Discharge Onset: - - No vaginal discharge Associated Symptoms: Dysuria, Frequency, Urgency, - - Hesitancy. Urinary symptoms for 1 week.. Negative for: Hematuria, Missed Period, Irregular Period Last known menstrual period: 1 month ago Narrative: Has been treating with [facility] off-and-on but has not been seen for what she thought was a urinary tract infection yet. Now for the last day or 2, she has been having pain that started in the right low back, now it is across her low back, nausea, vomiting especially when the pain gets worse, and chills. No hematuria. Has a new sexual partner, no vaginal discharge. - Past Medical History (1) History of depression Status: Chronic Past Medical History - Allergies and Home Meds Allergies/Adverse Reactions: Allergies bee venom protein (honey bee) Allergy (Verified 09/17/19 19:16) Hives fluoxetine [From Prozac] Allergy (Verified 09/17/19 19:16) Hives Primary Care Physician: Care Physician,No Primary [Primary Care Provider] - Smoking Status: Never smoker Drugs: None Review of Systems General: Reports: Chills, Malaise. Denies: Fever, Sweats Eyes: Denies: Visual changes - bilaterally, Diplopia ENT: Denies: Rhinorrhea, Sore throat Cardiovascular: Denies: Chest pain, Palpitations Respiratory: Denies: Dyspnea, Cough, Dyspnea on exertion Gastrointestinal: Reports: Abdominal pain, Nausea, Vomiting. Denies: Diarrhea, Melena, Hematochezia Genitourinary: Reports: Dysuria, Frequency, - - Urinary hesitancy and urgency. Denies: Hematuria Musculoskeletal: Reports: Back pain. Denies: Neck pain, Swelling, Extremity Pain Skin: Denies: Rash, Wounds Neurological: Denies: Headache, Weakness, Numbness Physical Exam Vital Signs/Narrative: Vital Signs Temp Pulse Resp BP Pulse Ox 09/17/19 19:14 98.2 F 87 16 141/92 H 97 Inital Vital Signs reviewed: Yes General: Well nourished, Well developed, - - No acute distress Head: Normocephalic, Atraumatic Eyes: Perrl, EOMI ENT: Moist mucous membranes, No rhinorrhea Neck: Supple, Nontender, No lymphadenopathy Cardiovascular: Regular rate, Regular rhythm, No murmurs. Negative for: Tachycardia Respiratory: No distress, CTA bilaterally, Chest nontender Abdomen: Soft, Nondistended, Normal bowel sounds, Tender - Suprapubic and epigastric only. Negative for: Guarding, Rebound tenderness Back: Normal Inspection, CVA tenderness - Bilateral, worse on right Extremities: Nontender, No edema Skin: Normal color, No rash, No Trauma Neurological: Alert, Oriented x3, Cranial nerves II-XII grossly intact, Normal Strength, Normal Sensation, Normal Gait Psychological: Normal affect, Normal Mood Diagnostic/Tx/Re-eval Laboratory Results 09/17/19 09/17/19 09/17/19 19:25 19:25 19:25 WBC RBC Hgb Hct MCV MCH MCHC RDW Std Deviation RDW Coeff of Lucille Plt Count MPV Immature Gran % (Auto) Neut % (Auto) Lymph % (Auto) Coos % (Auto) Eos % (Auto) Baso % (Auto) Absolute Neuts (auto) Absolute Lymphs (auto) Nucleated RBC % Sodium Potassium Chloride Carbon Dioxide Anion Gap BUN Creatinine Estim Creat Clear Calc Est GFR (MDRD) Af Amer Est GFR (MDRD) Non-Af BUN/Creatinine Ratio Glucose Calcium Urine Color Yellow Urine Clarity Cloudy Urine pH 7.0 Ur Specific Randall 1.015 Urine Protein 15 H Urine Glucose (UA) Normal Urine Ketones Negative Urine Occult Blood 25 H Urine Nitrite Positive H Urine Bilirubin Negative Urine Urobilinogen Normal Ur Leukocyte Esterase 500 H Urine RBC 0-5 SEEN Urine WBC 25-50 SEEN Ur Squamous Epith Cells 0-5 SEEN Urine Bacteria 3+ Urine Mucus 0 SEEN Urine Test Negative Chlam trachomat DNA PCR Negative N.gonorrhoeae DNA (PCR) Negative 09/17/19 09/17/19 09/17/19 20:40 20:40 21:50 WBC 9.4 RBC 4.67 Hgb 14.5 Hct 44.4 MCV 95.1 MCH 31.0 MCHC 32.7 RDW Std Deviation 43.8 RDW Coeff of Lucille 12.5 Plt Count 340 MPV 9.1 Immature Gran % (Auto) 0.300 Neut % (Auto) 62.7 Lymph % (Auto) 28.0 Coos % (Auto) 7.1 Eos % (Auto) 1.4 Baso % (Auto) 0.5 Absolute Neuts (auto) 5.9 Absolute Lymphs (auto) 2.62 Nucleated RBC % 0 Sodium Cancelled 139 Potassium Cancelled 4.3 Chloride Cancelled 105 Carbon Dioxide Cancelled 26.0 Anion Gap Cancelled 8 BUN Cancelled 14 Creatinine Cancelled 0.74 Estim Creat Clear Calc Cancelled 126.77 Est GFR (MDRD) Af Amer Cancelled 124 Est GFR (MDRD) Non-Af Cancelled 103 BUN/Creatinine Ratio Cancelled 19.0 Glucose Cancelled 114 H Calcium Cancelled 9.0 Urine Color Urine Clarity Urine pH Ur Specific Randall Urine Protein Urine Glucose (UA) Urine Ketones Urine Occult Blood Urine Nitrite Urine Bilirubin Urine Urobilinogen Ur Leukocyte Esterase Urine RBC Urine WBC Ur Squamous Epith Cells Urine Bacteria Urine Mucus Urine Test Chlam trachomat DNA PCR N.gonorrhoeae DNA (PCR) - Treatment/Re-Evaluation Treatment: Morphine IV, Toradol IV, - - Rocephin IV Re-Evaluation: Feels Better - Medical Decision/Diagnostic Studies GC and Chlamydia cultures sent: Yes - pending Her abnormal urinalysis and symptoms/exam are consistent with pyelonephritis. I do not think she requires a CT scan, all of the symptoms progressed gradually, I do not suspect a stone. Her labs are otherwise unremarkable, her is negative, and she is tolerating oral fluids with controlled symptoms although after Toradol and morphine, she was much better and the pain started slowly coming back prior to discharge. She was given a couple of [place] here prior to discharge in addition to a prescription for that and Bactrim x2 weeks, and given a doctor to follow-up with. Culture was sent. GC and chlamydia sent. She is comfortable with this overall plan. ED Disposition - Plan for ED Patient: Disposition: Home or Assisted Living Diagnosis: Pyelonephritis Instructions: ED Pyelonephritis Female Adult Prescriptions: Sulfamethoxazole/Trimethoprim [Bactrim Ds Tablet] 1 ea PO BID #28 tab Transmission Status: Pending to [facility]/pharmacy #[id number] Hydrocodone Bitart/Apap 5-325 [Tribune 5MG-325MG] 1 tablet PO Q4H PRN PRN 2 Days #10 tablet PRN Reason: Pain Transmission Status: Received by [facility]pharmacy #[id number] Referrals: Adriel Najera MD [STAFF PHYSICIAN] - 3-5 Days if not improving
[2019-09-17] MEDS: Ketorolac 30 MG/ML Syringe IV (20:36)
[2019-09-17] MEDS: Morphine 4 MG/ML Syringe IV (20:37)
[2019-09-17] MEDS: Ceftriaxone 1 GM/50 ML BAG IV (20:37)
[2019-09-17 20:52] LABS: Absolute Lymphocyte Count 2.62 X10^3/uL (0.83-4.51); Absolute Neutrophil Count 5.9 X10^3/uL (2.0-7.7); Basophil# 0.05 X10^3/uL; Basophil% 0.5 % (0-1); Eosinophil# 0.13 X10^3/uL; Eosinophils% 1.4 % (0-5); Hematocrit 44.4 % (37-47); Hemoglobin 14.5 g/dL (12.0-15.0); Lymphocyte # 2.62 X10^3/ul (4.0); Mean Corp Hgb Conc 32.7 g/dL (32-36); Mean Corpuscular Volume 95.1 fL (81-99); Mean Platelet Vol. 9.1 fl (6.2-12.0); Monocyte# 0.66 X10^3/uL; Monocyte% 7.1 % (0-10); NRBC Flagged by Analyzer 0 % (0-5); Neutrophil # 5.87 X10^3/uL (2.7-7.7); Neutrophil % 62.7 % (47-70); Platelet Count 340 K/mm3 (150-450); RBC Distribution Width CV 12.5 % (11.6-14.6); RBC Distribution Width SD 43.8 fl (35.1-43.9); Red Blood Count 4.67 M/mm3 (4.2-5.4); White Blood Count 9.4 K/mm3 (4.4-11.0)
[2019-09-17 20:59] LABS: Internal QC Validated? YES +Cl - CLEAR BKGD; Pregnancy, Urine Negative Negative
[2019-09-17 21:53] VITALS: PULSE 85; RESP 16; O2SAT 99
[2019-09-17 22:17] LABS: Anion Gap 8 (5-15); BUN 14 mg/dL (7-18); Chloride 105 mmol/L (98-107); Creatinine, Serum 0.74 mg/dL (0.55-1.02); EST Glomerular Filtration Rate 103 mL/min (>60); Est Glom Filt Rate - Afr Amer 124 mL/min (>60); Estimated Creatinine Clearance 126.77 ml/min; Glucose 114 mg/dL (74-106); Potassium 4.3 mmol/L (3.5-5.1); Sodium Level 139 mmol/L (136-145)
[2019-09-17 22:26] LABS: Chlamydia Trachomatis by PCR Negative (Negative); Neisserai gonorrhoeae by PCR Negative (Negative); Probe Check PASS; Sample Adequacy Control PASS; Specimen Processing Control PASS
[2019-09-17] MEDS: HYDROcodone Bitartrate/Apap 5/325 Tablet PO (23:19)
== END 2019-09-17 23:19 | disposition home or self-care (01) ==
PROVIDERS: Emergency Provider Emergency Medicine
DX: N12 Tubulo-interstitial nephritis, not specified as acute or chronic (principal)
CPT/HCPCS: 80048; 81001; 81025; 85025; 87077; 87086; 87088; 87186; 87491; 87591; 96361; 96365; 96375; 99284; J7030; A4216

== ENCOUNTER 2020-07-13 13:26 | Outpatient (RCR) | payer MEDICARE, SELFPAY | END 2020-09-13 23:59 | LOC: IMMUN 13:26 | PROVIDERS: Referring Provider Family Medicine; Visit Provider Family Medicine | DX: Z23 Encounter for immunization (principal) | CPT/HCPCS: 0001A; 0002A; 91300 ==

== ENCOUNTER → 2020-12-23 10:21 | Outpatient (CLI) | payer OTHER, MEDICAID, SELFPAY ==
[2020-12-23 12:20] LABS: Absolute Lymphocyte Count 2.72 X10^3/uL (0.83-4.51); Absolute Neutrophil Count 3.1 X10^3/uL (2.0-7.7); Basophil# 0.04 X10^3/uL; Basophil% 0.6 % (0-1); Eosinophil# 0.13 X10^3/uL; Hematocrit 41.6 % (37-47); Hemoglobin 13.5 g/dL (12.0-15.0); Lymphocyte # 2.72 X10^3/ul (0.83-4.51); Lymphocyte % 42.6 % (19-41); Mean Corp Hgb Conc 32.5 g/dL (32-36); Mean Corpuscular Hgb 29.9 pg (27.0-32.0); Mean Corpuscular Volume 92.2 fL (81-99); Mean Platelet Vol. 9.3 fl (6.2-12.0); Monocyte# 0.43 X10^3/uL; Monocyte% 6.7 % (0-10); NRBC Flagged by Analyzer 0 % (0-5); Neutrophil # 3.05 X10^3/uL (2.7-7.7); Neutrophil % 47.8 % (47-70); Platelet Count 448 K/mm3 (150-450); RBC Distribution Width CV 12.2 % (11.6-14.6); RBC Distribution Width SD 42.1 fl (35.1-43.9); Red Blood Count 4.51 M/mm3 (4.2-5.4); White Blood Count 6.4 K/mm3 (4.4-11.0)
[2020-12-23 12:37] LABS: Hemoglobin A1c 5.5 % (3.8-5.6)
[2020-12-23 12:47] LABS: AST(SGOT) 18 U/L (15-37); Alanine Aminotransfer ALT/SGPT 37 U/L (13-56); Albumin, Serum 3.9 g/dL (3.2-5.0); Alkaline Phosphatase 56 U/L (45-117); Anion Gap 6 (5-15); BUN 11 mg/dL (7-18); BUN/Creat Ratio 14.1 RATIO (10-20); CRP, High Sensitivity Cardiac 3.73 mg/L; Calcium,Total 9.1 mg/dL (8.5-10.1); Chloride 107 mmol/L (98-107); Cholesterol 162 mg/dL (200); Creatinine, Serum 0.78 mg/dL (0.55-1.02); EST Glomerular Filtration Rate 95 mL/min (>60); Est Glom Filt Rate - Afr Amer 115 mL/min (>60); Globulin 3.9 g/dL (2.2-4.2); Glucose 90 mg/dL (74-106); High Density Lipoprotein 33 mg/dL; Potassium 3.9 mmol/L (3.5-5.1); Protein, Total 7.8 g/dL (6.4-8.2); Sodium Level 139 mmol/L (136-145); Thyroid Stim Hormone (TSH) 0.99 uIU/mL (0.358-3.74); Triglycerides 161 mg/dL; Very Low Density Lipoprotein 32 mg/dL (5-40)
== END ==
PROVIDERS: Referring Provider Nurse Practitioner Family; Visit Provider Nurse Practitioner Family
DX: R53.82 Chronic fatigue, unspecified (principal); R68.82 Decreased libido; E66.9 Obesity, unspecified
CPT/HCPCS: 36415; 80053; 80061; 83036; 84443; 85025; 86141

== ENCOUNTER 2021-09-03 11:04 | Emergency (ER) | payer MEDICAID, SELFPAY ==
[2021-09-03 11:05] VITALS: BP 148/80; PULSE 85; RESP 16; TEMP 36.6; O2SAT 99; BMI 30.8
--- NOTE | 2021-09-03 11:48 | EDS_ITS ---
HPI History of Present Illness Chief Complaint: Rash Informant: patient Onset/Context/Timing Onset: Days (4) Context: Gradual Onset Timing: Continuous Quality: Itchy and red Location: Arms, chest, abdomen, groin bilaterally Current Severity: Severe Maximum Severity: Severe Worsened by: Scratching Relieved by: scratching Associated Symptoms Associated Symptoms: Pain in thigh muscles overnight Narrative Narrative: Patient was pulling lots of weeds out of garden beds/window boxes as she is renovating a house. She did not pay attention when she was pulling out because there is so much. She states about 4 days later she started breaking out in his itchy rash that seem to spread and it is extremely itchy. She states overnight her legs were aching. She has been itching and scratching a lot. Pain is not so bad now. [facility] Medical History MDD (major depressive disorder), recurrent episode, moderate Migraine Home Medications sulfamethoxazole-trimethoprim 1 ea PO BID #28 tab 09/17/19 [Rx Last Taken Unknown] prednisone 10 mg PO DAILY #63 tab 09/03/21 [Rx Last Taken Unknown] Allergy/AdvReac Type Severity Reaction Status Date / Time bee venom protein (honey bee) Allergy Hives Verified 09/03/21 11:06 fluoxetine [From Prozac] Allergy Hives Verified 09/03/21 11:06 Social History Smoking Status: Never smoker ROS ROS ED Constitutional Constitutional ED: Denies chills or fever(s) Eyes Eyes: Denies change in vision or diplopia ENT ENT ED: Denies rhinorrhea or sore throat Cardiovascular Cardiovascular: Denies chest pain or palpitations Respiratory/Chest Respiratory/Chest: Denies cough or dyspnea Gastrointestinal Gastrointestinal: Denies abdominal pain, diarrhea, nausea or vomiting Genitourinary Genitourinary ED: Denies dysuria or hematuria Musculoskeletal Musculoskeletal: Reports as per HPI and extremity pain; Denies back pain or neck pain Integumentary Reports as per HPI, pruritus and rash; Denies abscess Neurologic Neurologic: Denies headache(s), paresthesias or weakness Psychiatric Psychiatric: Denies anxiety or suicidal thoughts EXAM Physical Exam Const Vital Signs: 09/03/21 11:05 Temperature 98 F Temperature Source Temporal Pulse Rate 85 Respiratory Rate 16 Blood Pressure 148/80 H Blood Pressure Mean 102 Pulse Ox 99 Oxygen Delivery Method Room Air Positive well nourished and well developed General Appearance ED: well developed and NAD HEENT Reports moist mucous membranes normocephalic and atraumatic Eyes PERRL and EOMs intact bilaterally Neck full ROM and supple Resp normal respiratory effort Back/Spine no CVA tenderness General Back: other FROM Extremity full ROM Extremity Narrative: All compartments soft and nondistended. No tenderness. General Extremety ED: Negative for edema, pulses abnormal or tenderness General Extremity: Negative for edema or pulses abnormal Neuro oriented x3, CN's II-XII intact bilaterally and no sensory deficits noted Sensorium / Orientation: awake and alert Motor Exam: strength 5/5 throughout Skin no wounds Skin Narrative: Patches of erythematous rash some in linear distributions, both forearms, across upper chest, trunk, few on legs/thighs MDM MDM MDM Narrative Medical decision making narrative: History and rash consistent with poison hoda. Patient reassured placed on prednisone, and we discussed the fact that this may last 2 weeks or more, and that she can also add topical hydrocortisone if she needs to. I would recommend ibuprofen prior to going to bed for the leg discomfort which does not appear to be anything dangerous, she has neurovascular intact distally. Discharge Plan Triage Chief Complaint: Rash ED Provider: Tucker Gastelum Dx/Rx/DC Orders Clinical Impression: Allergic dermatitis due to poison hoda Instructions: ED Poison Hoda Rash Prescriptions: New prednisone 10 MG tablet 10 mg PO DAILY Qty: 63 RF: 0 No Action sulfamethoxazole-trimethoprim 1 EACH tablet 1 ea PO BID Qty: 28 RF: 0 Primary Care Provider: Becky Mares Referrals: Becky Mares MD [Primary Care Provider] - As Needed Disposition Disposition: Home, Self Care
== END 2021-09-03 12:13 | disposition home or self-care (01) ==
PROVIDERS: Emergency Provider Emergency Medicine; PCP Pediatrics; Visit Provider Emergency Medicine
DX: L23.7 Allergic contact dermatitis due to plants, except food (principal)
CPT/HCPCS: 99282